=== PATIENT | female | born 1950 | race Caucasian/White ===

== ENCOUNTER 2020-01-20 09:46 | Outpatient (CLI) | payer MEDICARE, OTHER, SELFPAY ==
--- NOTE | 2020-01-20 10:29 | ECG_ITS ---
Measurements Intervals [place] Rate: 56 P: -4 IL: 184 QRS: -21 QRSD: 105 T: 22 QT: 389 QTc: 376 Interpretive Statements SINUS BRADYCARDIA INCOMPLETE RIGHT BUNDLE BRANCH BLOCK DELAYED PRECORDIAL R/S TRANSITION BASELINE ARTIFACT- I, II, AVR BORDERLINE ECG Electronically Signed On 01-20-2020 10:59:00 CDT by Mahesh Quach D.O.
[2020-01-20 10:57] LABS: Basophils Percent Auto 0.7 % (0.2-1.2); Eosinophils Absolute Auto 0.1 K/mm3 (0-0.3); Eosinophils Percent Auto 2.8 % (0-4.4); Hemoglobin 14.5 g/dL (12.0-15.0); Lymphocytes Absolute Auto 1.74 K/mm3 (0.9-3.2); Lymphocytes Percent Auto 40.3 % (18.3-44.2); Mean Corpuscular HGB Conc 33.7 g/dl (32-36); Mean Corpuscular Hemoglobin 30.5 pg (26-34); Mean Corpuscular Volume 90.3 fl (80-100); Mean Platelet Volume 10.4 fl (7.4-10.4); Monocytes Absolute Auto 0.4 K/mm3 (0.1-0.6); Neutrophils Percent Auto 47.2 % (45.5-73.1); Platelet Count Result 248 k/mm3 (150-375); Red Blood Count 4.76 M/mm3 (4.2-5.4); Red Cell Distribution Width 12.8 % (11.5-14.5); White Blood Count 4.3 K/mm3 (4.5-10.0)
[2020-01-20 11:11] LABS: Anion Gap 9.2 mmol/L (7-16); Blood Urea Nitrogen 29 mg/dL (7-17); Calcium 9.6 mg/dL (8.4-10.2); Carbon Dioxide 29 mmol/L (22-30); Chloride 103 mmol/L (98-107); Estimated Glomerular Filt Rate > 60; Glucose 111 mg/dL (65-105); Potassium 4.2 mmol/L (3.4-5.0); Sodium 137 mmol/L (137-145)
== END 2020-01-20 09:47 | disposition home or self-care (01) ==
PROVIDERS: Anesthesiology; PCP Internal Medicine; Visit Provider Orthopaedic Surgery
DX: M19.012 Primary osteoarthritis, left shoulder (principal); E78.5 Hyperlipidemia, unspecified; I10 Essential (primary) hypertension; I45.10 Unspecified right bundle-branch block
CPT/HCPCS: 36415; 80048; 85025; 87081; 93005

== ENCOUNTER 2020-01-31 08:26 | Outpatient (CLI) | payer MEDICARE, OTHER, SELFPAY ==
--- NOTE | ~2020-01-31 | CT_ITS ---
EXAMINATION: CT shoulder LT wo con DATE: 01/31/2020 08:58 INDICATION: Left shoulder osteoarthritis TECHNIQUE: High resolution computed tomography (CT) of the left shoulder was performed without intrav enous contrast. Additional sagittal and coronal reconstructions were performed. Automated exposure co ntrol and iterative reconstruction technique were employed. The dose-length product was 426.00 mGy-cm . COMPARISON: 08/30/2019 FINDINGS: Bone alignment is normal. No fracture. Left glenohumeral osteoarthritis with moderate to severe nonun iform joint space narrowing, scattered subarticular cystic change most prominent along the posterior glenoid as well as the anterior and cephalad aspect of the left humeral head. Small marginal osteophy yahaira along the humeral head and anterior glenoid. Mild left acromioclavicular osteoarthritis. No evide nt glenohumeral joint effusion. No asymmetric muscular atrophy of the left rotator cuff or shoulder g irdle. No pathologically enlarged lymphadenopathy at the left axilla, left hilum or visualized medias tinum. Aortic valve calcifications. Scattered subsegmental atelectasis in the left lung due to expira tory phase of imaging. 3 mm anterolisthesis C7 on T1 with severe bilateral facet osteoarthritis at th is level. Severe thoracic spondylosis. IMPRESSION: 1. Moderate to severe left glenohumeral osteoarthritis. Reviewed, dictated and finalized at location A.
== END 2020-01-31 08:27 | disposition home or self-care (01) ==
PROVIDERS: Visit Provider Orthopaedic Surgery
DX: M19.012 Primary osteoarthritis, left shoulder (principal)
CPT/HCPCS: 73200

== ENCOUNTER 2020-02-12 01:30 | Outpatient (CLI) | payer MEDICARE, OTHER, SELFPAY ==
[2020-02-12 18:01] LABS: SARS-CoV-2 RNA PCR Negative
== END 2020-02-12 01:31 | disposition home or self-care (01) ==
LOC: ANHCOVIDDT 01:31
PROVIDERS: Visit Provider Orthopaedic Surgery
DX: Z01.812 Encounter for preprocedural laboratory examination (principal); Z20.828 Contact with and (suspected) exposure to other viral communicable diseases
CPT/HCPCS: 87635; C9803; U0003

== ENCOUNTER 2020-02-15 12:14 | Inpatient (IN) | payer MEDICARE, OTHER, SELFPAY ==
[2020-01-20 09:56] VITALS: BP 119/67; PULSE 63; RESP 16; TEMP 37.1; O2SAT 97; BMI 30.3
--- NOTE | 2020-02-14 13:55 | WPDANESEPPF ---
Anes - Initial Pre Proc Eval Procedure: Operation Date: 02/15/20 07:30 Proposed Procedures p Left Anatomic Total Shoulder Arthroplasty - Navjot Cadena MD Date/Time: 02/14/20 13:55 Surgeon: Navjot Cadena MD Pre Op Diagnosis: left shoulder OA Patient Data Age: 69 Gender: F Height: 1.5 m Weight: 68.2 kg Last Vital Signs Temp 37.1 C 01/20/20 09:56 Pulse 63 01/20/20 09:56 Resp 16 01/20/20 09:56 BP 119/67 01/20/20 09:56 Pulse Ox 97 01/20/20 09:56 Allergies Allergy/AdvReac Type Severity Reaction Status Date / Time cephalexin Allergy Severe Rash Verified 02/15/20 06:13 lisinopril AdvReac Mild Cough Verified 02/15/20 06:13 Home Medications Medication Instructions Recorded Confirmed Type ergocalciferol (vitamin D2) 1,250 1,250 mcg PO WEEKLY 07/09/19 02/15/20 History mcg (50,000 unit) capsule nystatin-triamcinolone 100,000 1 applic TOPICAL BID PRN 07/09/19 02/15/20 History unit/g-0.1 % topical cream olmesartan 20 1 tablet PO DAILY 07/09/19 02/15/20 History mg-hydrochlorothiazide 12.5 mg tablet pravastatin 20 mg tablet 20 mg PO HS 07/09/19 02/15/20 History L. gasseri-B. bifidum-B longum 1 cap PO DAILY 01/20/20 02/15/20 History [Probiotic Colon Care] Patient hx anesthesia problems: none Family hx anesthesia problems: none PMFSH Past Medical History Medical History (Updated 02/14/20 @ 13:56 by Chau Salomon MD) Diarrhea Essential hypertension Hemorrhoids Mixed hyperlipidemia Obesity Osteoarthritis of left shoulder Vitamin D deficiency, unspecified Social History Social History Smoking status: Never smoker Alcohol intake: current Drinks per week: 2 Alcohol use details: glasses of wine Substance use: never Living arrangements: with family Spiritual care concerns: No Anes - Eval Final PreProcedure Day of Procedure 02/14/20 13:55 Patient weight: obese Heart: regular rate and rhythm Lungs: clear to auscultation and normal air movement Airway: Mallampati scale class II Neurological: alert and oriented Last oral intake: >/= 8 hours ASA classification: III Emergent: no Anesthetic plan: proceed Anesthesia type and monitoring: general ETT Informed Consent: The patient's anesthetic plan and its attendant risks and benefits were discussed with the patient/family/POA. Questions were solicited and answers provided to the satisfaction of the patient/family/POA.
[2020-02-15] VITALS (16 sets, daily range): BP systolic 109–151; BP diastolic 55–80; PULSE 55–92; RESP 8–18; TEMP 36–36.8; O2SAT 92–98; BMI 31.6
--- NOTE | ~2020-02-15 | XR_ITS ---
EXAMINATION: XR shoulder LT min 2V DATE: 02/15/2020 11:10 INDICATION: Left shoulder arthroplasty. Postop. TECHNIQUE: 2 views of left shoulder were obtained. COMPARISON: Left shoulder radiographs 08/30/2019 FINDINGS: There is a total left shoulder arthroplasty in near-anatomic alignment. No fracture. There is moderate osteoarthritis of acromioclavicular joint. There is mild atelectasis at left lung base. IMPRESSION: 1. Total left shoulder arthroplasty in near-anatomic alignment. Reviewed, dictated and finalized at location A.
[2020-02-15] MEDS: LACTATED RINGERS 1,000 ML 30 ML IV CONT ×2 (06:25→10:53)
[2020-02-15] MEDS: ACETAMINOPHEN 500 MG TABLET 1000 MG PO (06:42)
[2020-02-15] MEDS: KETOROLAC 15 MG/ML VIAL (*BKC) IV PUSH (06:43)
[2020-02-15] MEDS: TRANEXAMIC ACID 1,000MG/ISO100 1,000 MG/100 ML BAG 200 MG IVPB (06:45)
--- NOTE | 2020-02-15 07:17 | WPDHPUPDATE1 ---
History and Physical Update Update Date/Time: 02/15/20 07:17 History and Physical has been reviewed, including an updated exam of the patient. There are NO changes in the patient's condition. Risks, benefits, and alternatives have been discussed and questions answered. Patient agrees to proceed with procedure.
--- NOTE | 2020-02-15 07:24 | WPDANESPNB ---
Anes - Peripheral Nerve Block Date/Time: 02/15/20 07:24 I have discussed with the patient/family/POA the placement of a peripheral nerve block for post-operative pain management, including associated risks, benefits, complications, and side effects. Alternative methods of post-operative analgesia were detailed. Questions were solicited and answers provided to the satisfaction of the patient/family/POA. Time-Out: A pre-procedural Time-Out was completed immediately before starting the procedure and confirmed: Patient Identification, Site, Procedure, Patient Position and the Availability of Requisite Equipment. Clinical Indications: Acute post-operative pain management requested by the operative surgeon. Nerve Block Insertion Note Anes-nerve block: supraclavicular left Patient position: supine Skin prep: chlorhexidine Needle: 22 gauge, stimulating, insulated echogenic needle. Needle length: 80 mm Technique: ultrasound (in plane) Injectate: bupivacaine 0.5% with epi 5 mcg/ml (20cc) Observations: tolerated well Complications: none Procedure start time:: 715 Procedure end time::
[2020-02-15] MEDS: CLINDAMYCIN 900 MG/NS 50 ML 900 MG/50 ML PIGGYBACK 50 MG IVPB (07:26)
--- NOTE | 2020-02-15 11:10 | PM.PROC ---
Procedure Note - Detailed Date of procedure: 02/15/20 Pre-op diagnosis: left shoulder OA Post-op diagnosis: same Procedure performed: 1. Anatomic total shoulder arthroplasty 2. Lesser tuberosity osteotomy. 3. Biceps tenodesis. Implants: Tornier Aequalis Ascend Flex humeral stem size 2B. Aequalis humeral head flex system size 43 low offset. Shoulder Innovations, Glenoid circular in-line peg 22 x 6 millimeter glenoid component. Anesthesia: GETA and regional (interscalenen block) Surgeon: Navjot Cadena MD Estimated blood loss (mL): 150 Drains: No Complications: No immediate complications Condition: stable Disposition: PACU Findings: OPERATIVE DETAILS: The patient was given an interscalene block in the preoperative area. Preoperative antibiotics were given. The patient was transferred to the operating room and a general anesthetic was administered. The beach chair position was used at 45 degrees. All bony prominences were padded. The head was carefully stabilized on the Bartholomew overhead irrigator. A sterile prep and drape was performed in the usual manner with Chloraprep. A longitudinal incision was created at the anterior shoulder just lateral to the deltopectoral interval. Careful dissection was performed to expose the interval and protect the cephalic vein. The vein was retracted medially. The upper border of the pectoralis was released. Anterior circumflex vessel branches were suture ligated. The biceps tenodesed. A lesser tuberosity osteotomy was performed after opening the joint capsule at the rotator interval. The inferior capsule was released, exposing the humeral head. Osteophytes were removed. Care was taken to stay on bone to protect the axillary nerve. The anatomic head cut was taken with the oscillating saw. Sounding and broaching was performed. The neck anteversion and inclination were carefully assessed. Head sizing and offset were determined. The cut protector was placed, and attention was turned to the glenoid. Retractors were placed. Releases were carried out for exposure. The subscapularis was mobilized, the inferior capsule and long head of triceps released, and the superior and middle glenohumeral ligaments released as well. Labral tissue was resected. The sizing template was used and a guide pin was placed. Less than 5? of deformity correction was performed. The Reamer was placed over the guide pin and taken down to create a 3-4 millimeter wall. The peg drill guide was applied and the pegs drilled. The trial component was placed and fit very nicely. Excellent stability was confirmed. The real component was cemented into position. Excess cement was carefully removed. The humerus was prepared for subscapularis repair with the drilling and passage of 3 suture leaders, and a rip stop #2 tape suture at the biceps groove. The real humeral stem and head were impacted into position. The shoulder was copiously irrigated periodically with pulsatile lavage. The shoulder was reduced and the subscapularis repaired with #5 Ethibond suture modified Willie-Tee sutures, and reinforced with number 2 Ethibond suture. The anterior supraspinatus was slightly thin. It was reinforced with #2 Ethibond suture and appeared quite anatomic. The rotator interval was reapproximated distally. The biceps tenodesis was incorporated with the pectoralis tendon repair using #5 Ethibond suture. The deltopectoral space was reapproximated with 2-0 Vicryl. The remaining tissue was closed with 0 Quill and 2-0 Quill running suture and steri-strips. A sterile dressing and shoulder immobilizer was placed. The patient was transferred to the recovery room.
--- NOTE | 2020-02-15 11:50 | SUR.PHASEI ---
Attempted to give report to floor RN. She said she will have to call back when finished giving report on another patient being discharged.
--- NOTE | 2020-02-15 12:20 | ADMGEN ---
This patient, Nick Hernandez, was admitted to Medical Room 245-. Patient/family oriented to hospital policies and general routines including ID bracelet, bed and alarms, visiting hours, pain management, procedures, bathroom and other care routines, personal items, smoking policy, room service/diet, and visiting hours. Valuables list has been completed. Information on how to activate the Rapid Response Team has been discussed. Patient/Family are encouraged to report perceived risks to care and to ask questions if they do not understand what they are told or what they should do.
--- NOTE | 2020-02-15 14:42 | PCPTNOTE ---
Attempted PT eval. Pt sleeping and Cherelle RN stated to try at later time.
[2020-02-15] MEDS: CLINDAMYCIN 600 MG/NS 50 ML 600 MG/50 ML PIGGYBACK 100 MG IVPB ×2 (15:26→22:05)
[2020-02-15] MEDS: MELOXICAM 7.5 MG TABLET PO (17:54)
[2020-02-15] MEDS: ASPIRIN 81 MG ENTERIC TABLET PO (17:54)
[2020-02-15] MEDS: DOCUSATE SODIUM 100 MG CAPSULE PO (17:54)
[2020-02-15] MEDS: PRAVASTATIN SODIUM 20 MG TABLET PO (22:05)
[2020-02-16 01:59] VITALS: BP 120/54; PULSE 62; RESP 18; TEMP 36.1; O2SAT 96
[2020-02-16 06:00] VITALS: BP 105/60; PULSE 57; RESP 18; TEMP 36.2; O2SAT 96
[2020-02-16] MEDS: CLINDAMYCIN 600 MG/NS 50 ML 600 MG/50 ML PIGGYBACK 100 MG IVPB ×2 (06:18→14:47)
--- NOTE | 2020-02-16 09:02 | WPDANESPN ---
Anes - Prog Note Post-Op Date/Time: 02/16/20 09:02 Cardiovascular status: normal Respiratory status: normal Airway patency: baseline Mental status: baseline Post-Op hydration status: normal Vital Signs: Last Vital Signs Temp 36.2 C L 02/16/20 06:00 Pulse 57 L 02/16/20 06:00 Resp 18 02/16/20 06:00 BP 105/60 02/16/20 06:00 Pulse Ox 96 02/16/20 06:00 I/O: Intake & Output 02/15/20 02/16/20 02/16/20 23:59 07:59 15:59 Intake Total 390 250 240 Output Total 525 Balance -135 250 240 Post-procedural complaints: none Patient Feedback: Patient satisfied with anesthetic care.
[2020-02-16 09:59] VITALS: BP 103/50; PULSE 58; RESP 14; TEMP 36.3; O2SAT 96
[2020-02-16] MEDS: DOCUSATE SODIUM 100 MG CAPSULE PO (10:12)
[2020-02-16] MEDS: MELOXICAM 7.5 MG TABLET PO (10:12)
[2020-02-16] MEDS: ASPIRIN 81 MG ENTERIC TABLET PO (10:13)
[2020-02-16] MEDS: hydroCHLOROthiazide 12.5 MG CAPSULE PO (10:13)
[2020-02-16] MEDS: OLMESARTAN MEDOXOMIL 20 MG TABLET PO (10:13)
--- NOTE | 2020-02-16 11:30 | PM.DS ---
DS: Admitting Diagnosis Admitting Diagnosis Admitting Diagnosis: left shoulder OA DS: Discharge Diagnosis Discharge Diagnosis (1) History of total replacement of left shoulder joint: Code(s): Z96.612 - Presence of left artificial shoulder joint Status: Acute DS: Summary Hospital Course Reason for hospitalization: Total shoulder arthroplasty. Hospital Course: Tolerated surgery well. Progressed appropriately with therapy. Status at Discharge Functional status at discharge: independent ambulation Overall status at discharge: patient is progressing back to baseline Time Spent with Patient Time attestation: Total time spent providing and/or coordinating discharge services: Exam Const: General: no acute distress Resp: Effort & Inspection: normal respiratory effort Skin: Other: Wound healing well. Mepilex dressing intact. No hematoma or drainage. Sling applied appropriately. Deltoid muscle fires. Axillary nerve sensation intact. Good gas leak tester strength. No edema. radial pulse palpable. Neuro: Motor exam (neuro): 5/5 motor strength present throughout Sensory Exam: normal sensation Psych: Mental Status: mental status grossly normal Speech and movement: Normal speech and movement present Discharge Plan Discharge Attending physician on discharge: Navjot Cadena Discharging Clinician: Navjot Cadena Patient Disposition: Home, Self-Care Activity: may shower Diet: as tolerated Wound Care Instructions: follow printed instructions Discharge Instructions: see instruction sheet Patient Instructions: Antibiotic Form, Peripheral Nerve Block (DC), Shoulder Arthroplasty (GEN), Pain Management After Surgery (DC) Stand Alone Forms: General Discharge Information Follow-up/Referrals: Navjot Cadena MD [Physician] - Discharge Medications: New oxycodone-acetaminophen 5-325 mg tablet 1 - 2 tablet PO Q4-6H MDD 8 tablets PRN (Reason: pain) Qty: 30 RF: 0 Continued pravastatin 20 mg tablet 20 mg PO HS RF: 0 olmesartan-hydrochlorothiazide [Benicar HCT] 20-12.5 mg tablet 1 tablet PO DAILY RF: 0 nystatin-triamcinolone 100,000-0.1 unit/g-% cream 1 applic TOPICAL BID PRN (Reason: Rash) RF: 0 Probiotic Colon Care 1.5 billion cell Capsule 1 cap PO DAILY RF: 0 Date of admission: 02/15/20 12:14 Primary Care Provider: UNKNOWN,DOCTOR Admitting Provider: Navjot Cadena Attending physician on admission: Navjot Cadena
== END 2020-02-16 15:45 | disposition home or self-care (01) | DRG 483 ==
LOC: ANH2MED 12:20
PROVIDERS: Admitting Provider Orthopaedic Surgery; Visit Provider Orthopaedic Surgery
PROC: 0RRK0JZ Replacement of Left Shoulder Joint with Synthetic Substitute, Open Approach (ICD-10-PCS; CPT 23472; principal; 2020-02-15 07:30)
DX: M19.012 Primary osteoarthritis, left shoulder (principal); G89.18 Other acute postprocedural pain; I10 Essential (primary) hypertension; E78.2 Mixed hyperlipidemia; Z79.899 Other long term (current) drug therapy
CPT/HCPCS: 36415; 73030; 86850; 86900; 86901; 87635; 97110; 97116; 97161; 97165; A4565; A9270; C1713; C1776; C9803; J0131; J0171; J0330; J1100; J1885; J2250; J2270; J2405; J2704; J2795; J3010; J7120; U0003

== ENCOUNTER 2021-02-02 14:14 | Outpatient (CLI) | payer MEDICARE, OTHER, SELFPAY ==
--- NOTE | ~2021-02-02 | MM_ITS ---
EXAMINATION: MM screening ricky BI w smith HISTORY: Screening TECHNIQUE: Craniocaudal and mediolateral oblique 3-D tomosynthesis images were obtained and synthetic 2-D images were generated. CAD analysis was submitted and interpreted. COMPARISON: No prior mammogram is available for comparison at this institution. BREAST PARENCHYMAL COMPOSITION: There are scattered areas of fibroglandular density. FINDINGS: There is focal asymmetry in the upper outer quadrant of the right breast anteriorly. There are no suspicious masses, calcifications or architectural distortion in the left breast to suggest ma lignancy. IMPRESSION: 1. Focal right breast asymmetry. 2. Additional spot compression and mediolateral views with possible follow-up breast ultrasound recom mended. BI-RADS Category 0: Incomplete: Needs additional imaging evaluation. Reviewed, dictated and finalized at location A. IMPRESSION: 1. Focal right breast asymmetry. 2. Additional spot compression and mediolateral views with possible follow-up b reast ultrasound recommended. BI-RADS Category 0: Incomplete: Needs additional imaging evaluation.
== END 2021-02-02 14:15 | disposition home or self-care (01) ==
LOC: ANHIMG 14:25
DX: Z12.31 Encounter for screening mammogram for malignant neoplasm of breast (principal); R92.8 Other abnormal and inconclusive findings on diagnostic imaging of breast
CPT/HCPCS: 77063; 77067

== ENCOUNTER 2021-04-13 11:22 | Outpatient (CLI) | payer MEDICARE, OTHER, SELFPAY ==
--- NOTE | ~2021-04-13 | MM_ITS ---
EXAMINATION: MM diagnostic ricky RT w smith HISTORY: Follow-up right breast asymmetry TECHNIQUE: Additional 3-D tomosynthesis images of the right breast were performed and synthetic 2-D i mages were generated. CAD analysis was submitted and interpreted. COMPARISON: 02/02/2021 BREAST PARENCHYMAL COMPOSITION: Breast composed of scattered areas of fibroglandular density. FINDINGS: There are no suspicious masses, calcifications or architectural distortion in the right natalie ast to suggest malignancy. IMPRESSION: 1. No mammographic evidence for malignancy in the right breast. 2. Routine yearly screening mammogram and regular clinical breast examination are recommended. BI-RADS Category 1: Negative Reviewed, dictated and finalized at location A. IMPRESSION: 1. No mammographic evidence for malignancy in the right breast. 2. Routine yearly screening mammogram and regular clinical breast examination a re recommended. BI-RADS Category 1: Negative
== END 2021-04-13 11:23 | disposition home or self-care (01) ==
DX: R92.8 Other abnormal and inconclusive findings on diagnostic imaging of breast (principal)
CPT/HCPCS: 77061; 77065; G0279

== ENCOUNTER → 2021-10-09 16:04 | Outpatient (REF) | payer MEDICARE, OTHER, SELFPAY | LOC: ANHLAB 16:04 | PROVIDERS: Visit Provider Nurse Practitioner | DX: R22.9 Localized swelling, mass and lump, unspecified (principal) | CPT/HCPCS: 88304 ==

== ENCOUNTER 2023-10-14 13:32 | Outpatient (CLI) | payer MEDICARE, SELFPAY ==
--- NOTE | ~2023-10-14 | CT_ITS ---
EXAMINATION: CT shoulder RT wo con DATE: 10/14/2023 13:52 INDICATION: Right humeral fracture TECHNIQUE: High resolution computed tomography (CT) of the right shoulder was performed without intra venous contrast. Additional sagittal and coronal reconstructions were performed. Automated exposure c ontrol and iterative reconstruction technique were employed. The dose-length product was 259.00 mGy-c m. COMPARISON: None FINDINGS: Comminuted proximal right humeral fracture. This includes a mildly impacted transverse fracture acros s the surgical neck. There is also a comminuted fracture of the greater tuberosity with up to 8 mm la teral displacement of the caudal margin of the fracture. No evident involvement of the articular surf jamison of the humeral head. There is mild to moderate osteoarthritis at the glenoid humeral joint and mi ld osteoarthritis at the acromioclavicular joint. Minimal dependent atelectasis in the visualized rig ht lung. IMPRESSION: 1. Comminuted 1 part fracture of the proximal right humerus as detailed above. Reviewed, dictated and finalized at location A.
== END 2023-10-14 13:33 | disposition home or self-care (01) ==
PROVIDERS: Visit Provider Orthopaedic Surgery
DX: S42.301A Unspecified fracture of shaft of humerus, right arm, initial encounter for closed fracture (principal); X58.XXXA Exposure to other specified factors, initial encounter
CPT/HCPCS: 73200

== ENCOUNTER 2023-11-26 08:51 | Outpatient (CLI) | payer MEDICARE, SELFPAY ==
--- NOTE | ~2023-11-26 | XR_ITS ---
Right Shoulder Technique: AP and scapular Y views were obtained. Clinical History: Fracture follow-up COMPARISON: 10/29/2023 Findings: Cardiac fracture of the surgical neck of the humerus and greater tuberosity demonstrate par tial interval healing. Osseous alignment is essentially unchanged. Mild degenerative change of the gl enohumeral and acromioclavicular joints noted. Soft tissues are unremarkable. Impression: Mild partial interval healing of comminuted fracture of the surgical neck and greater tuberosity of t he proximal humerus. Reviewed, dictated and finalized at location M. Impression: Mild partial interval healing of comminuted fracture of the surgical neck and g reater tuberosity of the proximal humerus.
== END 2023-11-26 08:52 | disposition home or self-care (01) ==
PROVIDERS: Visit Provider Orthopaedic Surgery
DX: S42.254D Nondisplaced fracture of greater tuberosity of right humerus, subsequent encounter for fracture with routine healing (principal); S42.214D Unspecified nondisplaced fracture of surgical neck of right humerus, subsequent encounter for fracture with routine healing; X58.XXXD Exposure to other specified factors, subsequent encounter
CPT/HCPCS: 73030

== ENCOUNTER 2024-05-14 09:19 | Outpatient (CLI) | payer MEDICARE, SELFPAY ==
--- NOTE | ~2024-05-14 | XR_ITS ---
EXAMINATION: XR shoulder RT min 2V DATE: 05/14/2024 09:38 INDICATION: Right shoulder pain TECHNIQUE: AP internally and externally rotated, AP oblique externally rotated and transscapular Y vi ews of the right shoulder were obtained. COMPARISON: None FINDINGS: The previously seen proximal right humeral fracture has healed with mild residual deformity. No acute fracture. Progression of secondary osteoarthritis with now mild to moderate joint space narrowing at the glenohumeral articulation. Unchanged mild to moderate acromioclavicular osteoarthritis. Severe l ower cervical spondylosis. Soft tissues are unremarkable. Visualized portion of the lungs are clear. IMPRESSION: 1. The prior proximal right humeral fracture has healed with mild residual deformity and with interva l development of mild to moderate secondary glenohumeral osteoarthritis. 2. No significant interval change in mild to moderate right acromioclavicular osteoarthritis and marie re lower cervical spondylosis. Reviewed, dictated and finalized at location B. SAMPLE MATCHER IMPRESSION: 1. The prior proximal right humeral fracture has healed with mild residual defo rmity and with interval development of mild to moderate secondary glenohumeral osteoarthritis. 2. No significant interval change in mild to moderate right acromioclavicular o steoarthritis and severe lower cervical spondylosis.
== END 2024-05-14 09:20 | disposition home or self-care (01) ==
LOC: ANHIMG 09:21
PROVIDERS: Visit Provider Orthopaedic Surgery
DX: M25.511 Pain in right shoulder (principal)
CPT/HCPCS: 73030